=== PATIENT | male | born 1955 | race Caucasian/White ===

== ENCOUNTER 2017-06-04 03:53 | Emergency (ER) | payer OTHER ==
[2017-06-04 04:01] VITALS: BP 147/73; PULSE 100; TEMP 98; BMI 29.5
[2017-06-04] MEDS ORDERED: DOXYCYCLINE HYCLATE 100 MG CAPSULE PO ONE ×2 (04:13→04:18)
--- NOTE | 2017-06-04 04:13 | PDOC ---
History of Present Illness - General Chief Complaint: Bite Stated Complaint: TICK Time Seen by Provider: 06/04/17 04:13 History Source: Patient Exam Limitations: No Limitations - History of Present Illness Initial Comments: 06/04/17 04:43 61-year-old male with no medical history presents to the emergency department complaining of a tick bite to the left lower abdomen. Patient states he was fishing yesterday and believes he was bit by a tick yesterday. Patient noticed it earlier this afternoon but decided to come to the emergency department after his noticed a black dot to the site. Patient states he was able to remove most of the tick with a tweezer. Patient denies fever, nausea/vomiting, joint pains. Timing/Duration: reports: yesterday Past History - Past Medical History Allergies/Adverse Reactions: Allergies Allergy/AdvReac Type Severity Reaction Status Date / Time No Known Allergies Allergy Verified 06/04/17 04:01 Home Medications: Ambulatory Orders Ibuprofen [Motrin -] 600 mg PO TID #30 tablet 04/09/16 Oxycodone HCl/Acetaminophen [Percocet 5/325 -] 1 tab PO Q6H #20 tablet MDD 4 07/25 Doxycycline Hyclate 100 mg PO BID #14 capsule 06/04/17 COPD: No - Suicide/Smoking/Psychosocial Hx Smoking History: Never smoked Have you smoked in the past 12 months: No Number of Cigarettes Smoked Daily: 0 Hx Alcohol Use: No Drug/Substance Use Hx: No Review of Systems - Review of Systems Able to Perform ROS?: Yes Comments:: 06/04/17 04:44 CONSTITUTIONAL: Absent: fever, chills, diaphoresis, generalized weakness, malaise, loss of appetite HEENT: Absent: rhinorrhea, nasal congestion, throat pain, throat swelling, difficulty swallowing, mouth swelling, ear pain, eye pain, visual Changes CARDIOVASCULAR: Absent: chest pain, loss of consciousness, palpitations, irregular heart rate, peripheral edema RESPIRATORY: Absent: cough, shortness of breath, dyspnea with exertion, orthopnea, wheezing, stridor, hemoptysis GASTROINTESTINAL: Absent: abdominal pain, abdominal distension, nausea, vomiting, diarrhea, constipation, melena, hematochezia GENITOURINARY: Absent: dysuria, frequency, urgency, hesitancy, hematuria, flank pain, genital pain MUSCULOSKELETAL: Absent: myalgia, arthralgia, joint swelling SKIN: +tick bite to left lower abd Absent: rash, itching, pallor HEMATOLOGIC/IMMUNOLOGIC: Absent: easy bleeding, easy bruising, lymphadenopathy, frequent infections ENDOCRINE: Absent: unexplained weight gain, unexplained weight loss, heat intolerance, cold intolerance NEUROLOGIC: Absent: headache, focal weakness or paresthesias, dizziness, unsteady gait, seizure, mental status changes, bladder or bowel incontinence PSYCHIATRIC: Absent: anxiety, depression, suicidal or homicidal ideation, hallucinations. Is the patient limited Marshallese proficient: No *Physical Exam - Vital Signs Last Vital Signs Temp Pulse Resp BP Pulse Ox 98 F 100 H 20 147/73 96 06/04/17 03:58 06/04/17 03:58 06/04/17 03:58 06/04/17 03:58 06/04/17 03:58 - Physical Exam Comments: 06/04/17 04:44 GENERAL: Well developed, well nourished. Awake and alert. No acute distress. HEENT: Normocephalic, atraumatic. PERRLA, EOMI. No conjunctival pallor. Sclera are non- icteric. Moist mucous membranes. Oropharynx is clear. NECK: Supple. Full ROM. No JVD. Carotid pulses 2+ and symmetric, without bruits. No thyromegaly. No lymphadenopathy. CARDIOVASCULAR: Regular rate and rhythm. No murmurs, rubs, or gallops. Distal pulses are 2+ and symmetric. PULMONARY: No evidence of respiratory distress. Lungs clear to auscultation bilaterally. No wheezing, rales or rhonchi. ABDOMINAL: .5cm piece of tick to left lower abd Soft. Non-tender. Non-distended. No rebound or guarding. No organomegaly. Normoactive bowel sounds. MUSCULOSKELETAL Normal range of motion at all joints. No bony deformities or tenderness. No CVA tenderness. EXTREMITIES: No cyanosis. No clubbing. No edema. No calf tenderness. SKIN: Warm and dry. Normal capillary refill. No rashes. No jaundice. Procedure: left lower abd .5cm piece of tick to abd 1%lidocaine; 1cc Betadine prep Removed with 18G needle bandaid *DC/Admit/Observation/Transfer Diagnosis at time of Disposition: Tick bite of abdomen Qualifiers: Encounter type: initial encounter Qualified Code(s): S30.861A - Insect bite ( nonvenomous) of abdominal wall, initial encounter - Discharge Dispostion Condition at time of disposition: Stable Admit: No - Prescriptions Prescriptions: Doxycycline Hyclate 100 mg PO BID #14 capsule - Referrals Referrals: STAFF,NOT ON [Primary Care Provider] - - Patient Instructions Printed Discharge Instructions: How to Care for an Insect Bite or Sting Additional Instructions: You were given Doxycyclin 200mg 1 tablet in the ER Follow up with your physician in 10-14 days for lyme test Return to the ER for fever, target sign, joints pain, severe/persistent/ worsening symptoms - Post Discharge Activity
[2017-06-04] MEDS ORDERED: LIDOCAINE HCL 1%, 10 MG/ML (20ML VIAL) ONE (04:30)
== END 2017-06-04 04:43 | disposition home or self-care (01) ==
LOC: JER 03:53
PROC: 0HC7XZZ Extirpation of Matter from Abdomen Skin, External Approach (ICD-10-PCS; principal; 2017-06-04)
DX: S30.861A Insect bite (nonvenomous) of abdominal wall, initial encounter (principal); W57.XXXA Bitten or stung by nonvenomous insect and other nonvenomous arthropods, initial encounter; Y93.59 Activity, other involving other sports and athletics played individually; Y92.89 Other specified places as the place of occurrence of the external cause; Y99.8 Other external cause status
CPT/HCPCS: 49999; 99282-25

== ENCOUNTER 2022-11-30 04:11 | Inpatient (IN) | payer OTHER ==
[2022-11-28 11:13] VITALS: BMI 29.8
[2022-11-30] MEDS ORDERED: ceFAZolin SODIUM 1 GM VIAL ONE (06:46)
[2022-11-30] MEDS ORDERED: CEFAZOLIN 2 GM in DEXTROSE 5%-WATER - 100 ML IVPB ONE (07:00)
[2022-11-30] MEDS ORDERED: POVIDONE-IODINE OINTMENT 10% - 28.4 GM TUBE ONE (07:16)
[2022-11-30] MEDS ORDERED: HEPARIN NA (PORCINE) 5,000 UNITS/ML 1ML VIAL ONE (07:16)
[2022-11-30] MEDS ORDERED: ceFAZolin SODIUM 1 GM VIAL IVPB ONE (08:22)
[2022-11-30] MEDS ORDERED: THROMBIN (BOVINE) 5,000 UNIT VIAL TP ONE (08:44)
[2022-11-30] MEDS ORDERED: ACETAMINOPHEN 1000 MG/100 ML BAG IVPB ONE (11:44)
[2022-11-30] MEDS ORDERED: ACETAMINOPHEN INJECTION 100 ML IVPB ONE (12:12)
[2022-11-30] MEDS: LACTATED RINGERS SOLUTION 1,000 ML IV SCH ×2 (14:00→14:56)
[2022-11-30] MEDS ORDERED: oxyCODONE HCL 5 MG TABLET PO PRN ×2 (14:01→14:02)
[2022-11-30] MEDS: CEFAZOLIN SODIUM 2 GM in DEXTROSE 5%-WATER 100 ML IVPB SCH ×2 (17:09→23:47)
[2022-11-30] MEDS: ACETAMINOPHEN 500 MG TABLET (FP) PO SCH (20:42)
[2022-11-30] MEDS: MUPIROCIN 2% TOPICAL OINTMENT FOR DECOLONIZATION NS SCH (21:01)
[2022-11-30] MEDS: BUDESONIDE/FORMETEROL FUMARATE 160/4.5 mcg INHALER IH SCH (21:01)
[2022-11-30] MEDS ORDERED: CHLORHEXIDINE GLUCONATE 4% CLEANSER FOR DECOLONIZATION TP SCH (22:00)
[2022-11-30] MEDS ORDERED: ATORVASTATIN CA 80 MG TABLET (FP) PO SCH (22:00)
[2022-12-01] MEDS: ACETAMINOPHEN 500 MG TABLET (FP) PO SCH ×3 (06:04→22:11)
[2022-12-01] MEDS: LACTATED RINGERS SOLUTION 1,000 ML IV SCH (06:05)
[2022-12-01 06:25] LABS: BASO % 0.1 % (0-2.0); EOS % 0.3 % (0-4.5); HEMATOCRIT 28.9 % (35.4-49); HEMOGLOBIN 10.3 GM/dL (11.7-16.9); MCH 33.4 pg (25.7-33.7); MCHC 35.5 g/dl (32.0-35.9); MEAN CELL VOLUME 93.9 fl (80-96); MEAN PLT VOLUME 7.8 fl (7.5-11.1); MONO % 9.2 % (3.8-10.2); NEUT % 73.4 % (42.8-82.8); PLATELET COUNT 190 10^3/uL (134-434); RBC 3.08 M/mm3 (4.00-5.60); RDW 13.6 % (11.9-15.9); WHITE BLOOD COUNT 8.1 K/mm3 (4.0-10.0)
[2022-12-01 06:48] LABS: POTASSIUM 4.5 mmol/L (3.5-5.1)
[2022-12-01 06:49] LABS: CALCIUM 8.8 mg/dL (8.5-10.1)
[2022-12-01 06:50] LABS: BLOOD UREA NITROGEN 21.1 mg/dL (7-18); INR 1.19 (0.83-1.09); MAGNESIUM 1.7 mg/dL (1.8-2.4); PROTHROMBIN TIME (PATIENT) 13.8 SEC (9.7-13.0)
[2022-12-01 06:53] LABS: CREATININE 1.1 mg/dL (0.55-1.3); PHOSPHOROUS 3.8 mg/dL (2.5-4.9)
[2022-12-01] MEDS ORDERED: MAGNESIUM 1GM/D5W 100ML - 100 ML IVPB IVPB ONE (07:30)
[2022-12-01] MEDS: MUPIROCIN 2% TOPICAL OINTMENT FOR DECOLONIZATION NS SCH (09:25)
[2022-12-01 09:27] LABS: N-TERMINAL BNP 395.2 pg/ml (5-125)
[2022-12-01] MEDS: BUDESONIDE/FORMETEROL FUMARATE 160/4.5 mcg INHALER IH SCH ×2 (09:27→21:58)
[2022-12-01] MEDS ORDERED: ASPIRIN COATED 81 MG TABLET.EC PO SCH ×2 (10:00)
[2022-12-01] MEDS ORDERED: amLODIPine BESYLATE 10 MG TABLET (FP) PO SCH (10:00)
[2022-12-01] MEDS ORDERED: LISINOPRIL 5 MG TABLET PO SCH (10:00)
[2022-12-01] MEDS ORDERED: CLOPIDOGREL BISULFATE 75 MG TABLET (FP) PO SCH ×2 (10:00)
[2022-12-01] MEDS ORDERED: HYDROCHLOROTHIAZIDE 25 MG TABLET (FP) PO SCH (10:00)
[2022-12-01] MEDS ORDERED: oxyCODONE HCL 5 MG TABLET PO PRN ×2 (21:24)
[2022-12-01] MEDS ORDERED: MUPIROCIN 2% TOPICAL OINTMENT FOR DECOLONIZATION NS SCH (22:00)
[2022-12-01] MEDS ORDERED: ATORVASTATIN CA 80 MG TABLET (FP) PO SCH (22:00)
[2022-12-01] MEDS ORDERED: CHLORHEXIDINE GLUCONATE 4% CLEANSER FOR DECOLONIZATION TP SCH (22:00)
[2022-12-01 23:56] VITALS: RESP 18
[2022-12-02] MEDS ORDERED: ACETAMINOPHEN 500 MG TABLET (FP) PO SCH (05:00)
[2022-12-02 09:03] LABS: HEMATOCRIT 30.6 % (35.4-49); HEMOGLOBIN 10.6 GM/dL (11.7-16.9); MCH 32.6 pg (25.7-33.7); MCHC 34.7 g/dl (32.0-35.9); MEAN CELL VOLUME 93.8 fl (80-96); MEAN PLT VOLUME 8.3 fl (7.5-11.1); PLATELET COUNT 200 10^3/uL (134-434); RBC 3.27 M/mm3 (4.00-5.60); RDW 13.7 % (11.9-15.9); WHITE BLOOD COUNT 7.6 K/mm3 (4.0-10.0)
[2022-12-02 09:04] LABS: POTASSIUM 4.5 mmol/L (3.5-5.1)
[2022-12-02 09:16] LABS: BLOOD UREA NITROGEN 15.9 mg/dL (7-18); MAGNESIUM 1.5 mg/dL (1.8-2.4)
[2022-12-02 09:17] LABS: CALCIUM 9.3 mg/dL (8.5-10.1)
[2022-12-02 09:23] LABS: PHOSPHOROUS 3.8 mg/dL (2.5-4.9)
[2022-12-02] MEDS: BUDESONIDE/FORMETEROL FUMARATE 160/4.5 mcg INHALER IH SCH (09:42)
[2022-12-02] MEDS ORDERED: HYDROCHLOROTHIAZIDE 25 MG TABLET (FP) PO SCH (10:00)
[2022-12-02] MEDS ORDERED: FAMOTIDINE 20 MG TABLET PO SCH (10:00)
[2022-12-02] MEDS ORDERED: ASPIRIN COATED 81 MG TABLET.EC PO SCH (10:00)
[2022-12-02] MEDS ORDERED: amLODIPine BESYLATE 10 MG TABLET (FP) PO SCH (10:00)
[2022-12-02] MEDS ORDERED: LISINOPRIL 5 MG TABLET PO SCH (10:00)
[2022-12-02] MEDS ORDERED: ENOXAPARIN NA (PORCINE) 40 MG/0.4 ML DISP.SYRIN SQ SCH (10:00)
[2022-12-02] MEDS ORDERED: CLOPIDOGREL BISULFATE 75 MG TABLET (FP) PO SCH (10:00)
[2022-12-02 10:44] VITALS: TEMP 98
[2022-12-02 13:57] VITALS: BP 148/80; PULSE 81
[2022-12-02] MEDS ORDERED: MAGNESIUM OXIDE 400 MG TABLET (FP) PO ONE (14:00)
== END 2022-12-02 16:19 | disposition home or self-care (01) | DRG 253 ==
LOC: J2C 04:11 → JICU 14:15 → J8W 12-01 20:18
PROVIDERS: ADMIT Surgery; ATTEND Nurse Practitioner Family
PROC: 04CM0ZZ Extirpation of Matter from Right Popliteal Artery, Open Approach (ICD-10-PCS; 2022-11-30)
PROC: 041K0JL Bypass Right Femoral Artery to Popliteal Artery with Synthetic Substitute, Open Approach (ICD-10-PCS; 2022-11-30)
PROC: 04CK0ZZ Extirpation of Matter from Right Femoral Artery, Open Approach (ICD-10-PCS; principal; 2022-11-30 08:00)
DX: I70.211 Atherosclerosis of native arteries of extremities with intermittent claudication, right leg (principal); I74.3 Embolism and thrombosis of arteries of the lower extremities; I25.10 Atherosclerotic heart disease of native coronary artery without angina pectoris; J45.909 Unspecified asthma, uncomplicated; I10 Essential (primary) hypertension; Z95.5 Presence of coronary angioplasty implant and graft; E78.5 Hyperlipidemia, unspecified; E83.42 Hypomagnesemia
CPT/HCPCS: 36415; 80048; 80061; 83036; 83735; 83880; 84100; 84443; 85025; 85027; 85610; 86850; 86900; 86901; 86922; 88304-TC; 88311-TC; 94760; 97116-GP; 97161-GP; C1768; C9803-CS; J1644; U0003; U0005

== ENCOUNTER 2022-12-20 17:53 | Emergency (ER) | payer OTHER ==
[2022-12-20 18:02] VITALS: BP 158/80; PULSE 82; RESP 18; TEMP 98.2; BMI 28.1
[2022-12-20] MEDS ORDERED: valACYclovir HCL 500 MG TABLET (FP) PO ONE (18:52)
[2022-12-20] MEDS ORDERED: valACYclovir HCL 500 MG TABLET (FP) ONE (18:53)
== END 2022-12-20 19:27 | disposition home or self-care (01) ==
LOC: JER 17:53 → JERFT 17:53
DX: R22.0 Localized swelling, mass and lump, head (principal); R21 Rash and other nonspecific skin eruption; B02.9 Zoster without complications
CPT/HCPCS: 99283-25